=== PATIENT | male | born 2000 | race Caucasian/White ===

== ENCOUNTER 2021-10-31 23:16 | Emergency (ER) | payer OTHER ==
[2021-11-01] MEDS ORDERED: Ibuprofen 200 MG TAB ONE (00:29)
== END 2021-11-01 00:45 ==
LOC: NAV ERS 23:16
DX: S93.401A Sprain of unspecified ligament of right ankle, initial encounter (principal); S86.311A Strain of muscle(s) and tendon(s) of peroneal muscle group at lower leg level, right leg, initial encounter; X50.1XXA Overexertion from prolonged static or awkward postures, initial encounter; Y93.67 Activity, basketball
CPT/HCPCS: 29515